=== PATIENT | male | born 1955 | race Caucasian/White ===

== ENCOUNTER 2018-01-16 10:22 | Observation (INO) | payer BC ==
[2018-01-16] MEDS ORDERED: Sodium Chloride 0.9% 10 ML Syringe FLUSH PRN (10:38)
[2018-01-16 11:21] LABS: CHLORIDE,CL 108 mmol/L (98-107); SODIUM,NA 142 mmol/L (136-145)
[2018-01-16] MEDS ORDERED: Hydrocortisone Sodium Succinate 100 MG/2 ML SDV IVPUSH ONE (12:06)
[2018-01-16] MEDS ORDERED: Indomethacin 25 MG Cap PO PRN (12:46)
[2018-01-16] MEDS: Lactated Ringers 1,000 ML IV SCH ×2 (13:05→17:05)
--- NOTE | 2018-01-16 13:12 | EDM.PDOC ---
ED HPI GENERAL MEDICAL PROBLEM - General Chief Complaint: Neurological Problem Stated Complaint: DIZZY/CONFUSION/BLURRED VISION Time Seen by Provider: 01/16/18 10:39 Source of Information: Reports: Patient History Limitations: Reports: No Limitations - History of Present Illness INITIAL COMMENTS - FREE TEXT/NARRATIVE: Pt. presents to ER with complaints of decreased level of consciousness. Pt. states that the symptoms started at approx. 9:30 this AM, shortly before going to work. Pt. states that he took a viagra at approx. 7-7:30 this AM prior to having intercourse. He states that during intercourse he did not have any headache, confusion, chest pain, or dyspnea. Pt. states that on Tuesday (01-14-18) he rode a stationary bike 26 miles during a bike marathon. He states that he didn't experience any symptoms with this. He also was extremely active yesterday and shoveled snow for 2 hours. He used his CPAP yesterday. He took his ambien last night before he went to bed. He denies any other symptoms, such as confusion, difficulty with speech or ambulation, or other neurological signs/symptoms. Pt. states that he has been taking his levothyroxine and states that it was previously greater than 20. Onset: Today Onset Date: 01/16/18 Onset Time: 09:30 Location: Reports: Generalized Associated Symptoms: Reports: Malaise. Denies: Confusion, Chest Pain, Cough, cough w sputum, Diaphoresis, Fever/Chills, Loss of Appetite, Nausea/Vomiting, Rash, Seizure, Shortness of Breath, Syncope - Related Data Allergies Allergy/AdvReac Type Severity Reaction Status Date / Time celecoxib [From Celebrex] AdvReac Mild Numbness Verified 01/16/18 11:23 Home Meds: Home Meds Amoxicillin/Clavulanate K [Augmentin 875-125 MG] 1 tab PO BID 01/16/18 [History] Aspirin [Halfprin] 81 mg PO DAILY 01/16/18 [History] Cholecalciferol (Vitamin D3) [Vitamin D3] 1,000 unit PO DAILY 01/16/18 [History] Cyanocobalamin (Vitamin B-12) [Vitamin B-12] 1,000 mcg PO DAILY 01/16/18 [ History] Diphenhyd/Lidocaine/Nystatin [First-Bxn Mouthwash] 5 - 10 ml PO Q6H PRN [History] Doxazosin [Cardura] 1 mg PO DAILY 01/16/18 [History] Fluticasone Propionate [Flonase] 1 spray NASBOTH DAILY 01/16/18 [History] Ibuprofen 800 mg PO Q4H PRN 01/16/18 [History] Indomethacin [Indocin] 50 mg PO TID PRN 01/16/18 [History] Levothyroxine Sodium [Levoxyl] 50 mcg PO DAILY 01/16/18 [History] Levothyroxine [Levothyroxine] 200 mcg PO DAILY 01/16/18 [History] Multivitamin [Multi-Vitamin Daily] 1 tab PO DAILY 01/16/18 [History] Octreotide Acetate,Mi-Spheres [Sandostatin Lar Depot] 30 mg IM Q28D 01/16/18 [ History] Sildenafil [Viagra] 100 mg PO DAILY PRN 01/16/18 [History] Testosterone Cypionate 200 mg IM Q14D 01/16/18 [History] Venlafaxine HCl [Venlafaxine ER] 150 mg PO DAILY 01/16/18 [History] Zolpidem Tartrate [Zolpidem Tartrate ER] 12.5 mg PO BEDTIME 01/16/18 [History] Past Medical History Respiratory History: Reports: Sleep Apnea Gastrointestinal History: Reports: Other (See Below) Other Gastrointestinal History: Repaired hernias Genitourinary History: Reports: BPH Musculoskeletal History: Reports: Osteoarthritis Endocrine/Metabolic History: Reports: Hyperthyroidism, Obesity/BMI 30+ Oncologic (Cancer) History: Reports: Other (See Below) Other Oncologic History: Mesentary of small intestine Dermatologic History: Reports: Decubitus Ulcer - Infectious Disease History Infectious Disease History: Reports: Chicken Pox - Past Surgical History HEENT Surgical History: Reports: Oral Surgery, Other (See Below) Other HEENT Surgeries/Procedures: Dental implants GI Surgical History: Reports: Hernia, Abdominal, Hernia Repair/Other Musculoskeletal Surgical History: Reports: Knee Replacement, Other (See Below) Other Musculoskeletal Surgeries/Procedures:: Right ankle fusion. Social & Family History - Family History Family Medical History: Noncontributory - Tobacco Use Smoking Status *Q: Never Smoker Second Hand Smoke Exposure: Yes - Caffeine Use Caffeine Use: Reports: Coffee, Soda - Recreational Drug Use Recreational Drug Use: No ED ROS GENERAL - Review of Systems Review Of Systems: See Below Constitutional: Reports: Malaise, Fatigue HEENT: Reports: No Symptoms Respiratory: Reports: No Symptoms Cardiovascular: Reports: No Symptoms Endocrine: Reports: No Symptoms GI/Abdominal: Reports: No Symptoms : Reports: No Symptoms Musculoskeletal: Reports: No Symptoms Skin: Reports: No Symptoms Neurological: Reports: No Symptoms Psychiatric: Reports: No Symptoms Hematologic/Lymphatic: Reports: No Symptoms Immunologic: Reports: No Symptoms ED EXAM, GENERAL - Physical Exam Exam: See Below Exam Limited By: No Limitations General Appearance: Alert, WD/WN, No Apparent Distress Eye Exam: Bilateral Eye: EOMI, Normal Fundi, Normal Inspection, PERRL Ears: Normal External Exam, Normal Canal, Hearing Grossly Normal, Normal TMs Ear Exam: Bilateral Ear: Auricle Normal, Canal Normal, TM normal Nose: Normal Inspection, Normal Mucosa, No Blood Throat/Mouth: Normal Inspection, Normal Lips, Normal Teeth, Normal Gums, Normal Oropharynx, Normal Voice, No Airway Compromise Head: Atraumatic, Normocephalic Neck: Normal Inspection, Supple, Non-Tender, Full Range of Motion Respiratory/Chest: No Respiratory Distress, Lungs Clear, Normal Breath Sounds, No Accessory Muscle Use, Chest Non-Tender Cardiovascular: Normal Peripheral Pulses, Regular Rate, Rhythm, No Edema, No Gallop, No JVD, No Murmur, No Rub Peripheral Pulses: 4+: Radial (L), Radial (R) GI/Abdominal: Normal Bowel Sounds, Soft, Non-Tender, No Organomegaly, No Distention, No Abnormal Bruit, No Mass (Male) Exam: Deferred Rectal (Males) Exam: Deferred Back Exam: Normal Inspection, Full Range of Motion Extremities: Normal Inspection, Normal Range of Motion, Non-Tender, Normal Capillary Refill, No Pedal Edema Neurological: Slow to Respond, Other (slow to respond/somnolent. NIH scale 1.) Psychiatric: Normal Affect, Normal Mood Skin Exam: Warm, Dry, Intact, Normal Color, No Rash Lymphatic: No Adenopathy EKG INTERPRETATION Rhythm: NSR [place]: Normal P-Wave: Present QRS: Normal ST-T: Normal QT: Normal Course - Vital Signs Last Recorded V/S: Last Vital Signs Temp 36.2 C 01/16/18 10:39 Pulse 60 01/16/18 10:39 Resp 16 03/26/18 10:39 BP 116/74 01/16/18 10:39 Pulse Ox 96 01/16/18 10:39 - Orders/Labs/Meds Orders: Active Orders 24 hr Category Date Time Status EKG Documentation Completion [RC] STAT Care 01/16/18 10:39 Active Oxygen Therapy [RC] PRN Care 01/16/18 12:05 Active Head wo Cont [CT] Stat Exams 01/16/18 10:39 Taken CULTURE BLOOD [BC] Stat Lab 01/16/18 11:00 Received CULTURE BLOOD [BC] Stat Lab 01/16/18 11:08 Received DRUG SCREEN, URINE [URCHEM] Stat Lab 01/16/18 10:57 Ordered FREE T3 [REF] Stat Lab 01/16/18 10:43 Received THYROXINE (T4) [REF] Stat Lab 01/16/18 10:43 Received Sodium Chloride 0.9% [Saline Flush] Med 01/16/18 10:38 Active 10 ml FLUSH ASDIRECTED PRN Blood Culture x2 Reflex Set [OM.PC] Stat Oth 01/16/18 10:49 Ordered Peripheral IV Insertion Adult [OM.PC] Routine Oth 01/16/18 10:39 Ordered Medication Orders Amoxicillin/Clavulanate Potassium (Augmentin 875 Mg/125 Mg) 1 tab PO BID NIA Aspirin (Halfprin) 81 mg PO DAILY NIA Cyanocobalamin (Vitamin B12) 1,000 mcg PO DAILY NIA Lactated Ringer's (Ringers, Lactated) 1,000 mls @ 250 mls/hr IV ASDIRECTED NIA Stop: 01/17/18 16:29 Levothyroxine Sodium (Synthroid) 50 mcg PO DAILY NIA Non-Formulary Medication (Cholecalciferol (Vitamin D3) [Vitamin D3]) 1,000 unit PO DAILY NIA Non-Formulary Medication (Indomethacin [Indocin]) 50 mg PO TID PRN PRN Reason: Pain (moderate 4-6) Non-Formulary Medication (Levothyroxine) 200 mcg PO DAILY NIA Non-Formulary Medication (Multivitamin [Multi-Vitamin Daily]) 1 tab PO DAILY NIA Sodium Chloride (Saline Flush) 10 ml FLUSH ASDIRECTED PRN PRN Reason: Keep Vein Open Venlafaxine HCl (Effexor Xr) 150 mg PO DAILY [facility] Labs: Laboratory Tests 01/16/18 01/16/18 01/16/18 Range/Units 10:43 10:43 10:43 WBC 8.0 (4.0-10.0) x10^3/uL RBC 4.85 (4.5-6.0) x10^6/uL Hgb 15.5 (14.0-18.0) g/dL Hct 43.7 (40.0-52.0) % MCV 90.1 (78.0-93.0) fL MCH 32.0 (26.0-32.0) pg MCHC 35.5 (32.0-36.0) g/dL RDW Coeff of Claudia 14.3 (10.0-15.0) % Plt Count 198 (130-400) x10^3/uL Neut % (Auto) 60.9 (50.0-80.0) % Lymph % (Auto) 27.6 (25.0-50.0) % [place] % (Auto) 7.7 (2.0-11.0) % Eos % (Auto) 3.4 (0.0-4.0) % Baso % (Auto) 0.4 (0.2-1.2) % PT 10.6 (9.8-11.8) SEC INR 1.0 L (2.0-3.5) POC ABG pH (7.35-7.45) POC ABG pCO2 (35-45) mmHG POC ABG pO2 (80-105) mmHG POC ABG HCO3 (22-26) mmol/L POC ABG Total CO2 (23-27) mmol/L POC ABG O2 Sat (95-98) % POC ABG Base Excess (-2-3) mmol/L POC FiO2 Sodium 142 (136-145) mmol/L Potassium 3.9 (3.5-5.1) mmol/L Chloride 108 H (98-107) mmol/L Carbon Dioxide 25 (21-32) mmol/L BUN 16 (7-18) mg/dL Creatinine 1.3 (0.70-1.30) mg/dL Est Cr Clr Drug Dosing TNP Estimated GFR (MDRD) 56 Glucose 109 H (74-106) mg/dL POC Glucose (74-106) mg/dL Lactic Acid (0.4-2.0) mmol/L Calcium 8.9 (8.5-10.1) mg/dL Corrected Calcium 8.98 (8.5-10.1) mg/dL Phosphorus 2.6 (2.6-4.7) mg/dL Magnesium 1.9 (1.8-2.4) mg/dL Total Bilirubin 1.8 H (0.2-1.0) mg/dL AST 65 H (15-37) U/L ALT 44 (16-63) U/L Alkaline Phosphatase 113 (46-116) U/L POC Troponin I (0.00-0.08) ng/mL C-Reactive Protein 0.5 (<=0.9) mg/dL Total Protein 7.4 (6.4-8.2) g/dL Albumin 3.9 (3.4-5.0) g/dL Globulin 3.5 Albumin/Globulin Ratio 1.11 TSH, Ultra Sensitive 10.085 H (0.358-3.74) uIU/mL Ethyl Alcohol < 3 (0-3) mg/dL 01/16/18 01/16/18 01/16/18 Range/Units 10:43 10:50 10:52 WBC (4.0-10.0) x10^3/uL RBC (4.5-6.0) x10^6/uL Hgb (14.0-18.0) g/dL Hct (40.0-52.0) % MCV (78.0-93.0) fL MCH (26.0-32.0) pg MCHC (32.0-36.0) g/dL RDW Coeff of [place] (10.0-15.0) % Plt Count (130-400) x10^3/uL Neut % (Auto) (50.0-80.0) % Lymph % (Auto) (25.0-50.0) % [place] % (Auto) (2.0-11.0) % Eos % (Auto) (0.0-4.0) % Baso % (Auto) (0.2-1.2) % PT (9.8-11.8) SEC INR (2.0-3.5) POC ABG pH (7.35-7.45) POC ABG pCO2 (35-45) mmHG POC ABG pO2 (80-105) mmHG POC ABG HCO3 (22-26) mmol/L POC ABG Total CO2 (23-27) mmol/L POC ABG O2 Sat (95-98) % POC ABG Base Excess (-2-3) mmol/L POC FiO2 Sodium (136-145) mmol/L Potassium (3.5-5.1) mmol/L Chloride (98-107) mmol/L Carbon Dioxide (21-32) mmol/L BUN (7-18) mg/dL Creatinine (0.70-1.30) mg/dL Est Cr Clr Drug Dosing Estimated GFR (MDRD) Glucose (74-106) mg/dL POC Glucose 100 (74-106) mg/dL Lactic Acid 1.5 (0.4-2.0) mmol/L Calcium (8.5-10.1) mg/dL Corrected Calcium (8.5-10.1) mg/dL Phosphorus (2.6-4.7) mg/dL Magnesium (1.8-2.4) mg/dL Total Bilirubin (0.2-1.0) mg/dL AST (15-37) U/L ALT (16-63) U/L Alkaline Phosphatase (46-116) U/L POC Troponin I 0.00 (0.00-0.08) ng/mL C-Reactive Protein (<=0.9) mg/dL Total Protein (6.4-8.2) g/dL Albumin (3.4-5.0) g/dL Globulin Albumin/Globulin Ratio TSH, Ultra Sensitive (0.358-3.74) uIU/mL Ethyl Alcohol (0-3) mg/dL 01/16/18 Range/Units 11:16 WBC (4.0-10.0) x10^3/uL RBC (4.5-6.0) x10^6/uL Hgb (14.0-18.0) g/dL Hct (40.0-52.0) % MCV (78.0-93.0) fL MCH (26.0-32.0) pg MCHC (32.0-36.0) g/dL RDW Coeff of Claudia (10.0-15.0) % Plt Count (130-400) x10^3/uL Neut % (Auto) (50.0-80.0) % Lymph % (Auto) (25.0-50.0) % [place] % (Auto) (2.0-11.0) % Eos % (Auto) (0.0-4.0) % Baso % (Auto) (0.2-1.2) % PT (9.8-11.8) SEC INR (2.0-3.5) POC ABG pH 7.448 (7.35-7.45) POC ABG pCO2 32 L (35-45) mmHG POC ABG pO2 64 L (80-105) mmHG POC ABG HCO3 22 (22-26) mmol/L POC ABG Total CO2 23 (23-27) mmol/L POC ABG O2 Sat 93 L (95-98) % POC ABG Base Excess -2 (-2-3) mmol/L POC FiO2 0.21 Sodium (136-145) mmol/L Potassium (3.5-5.1) mmol/L Chloride (98-107) mmol/L Carbon Dioxide (21-32) mmol/L BUN (7-18) mg/dL Creatinine (0.70-1.30) mg/dL Est Cr Clr Drug Dosing Estimated GFR (MDRD) Glucose (74-106) mg/dL POC Glucose (74-106) mg/dL Lactic Acid (0.4-2.0) mmol/L Calcium (8.5-10.1) mg/dL Corrected Calcium (8.5-10.1) mg/dL Phosphorus (2.6-4.7) mg/dL Magnesium (1.8-2.4) mg/dL Total Bilirubin (0.2-1.0) mg/dL AST (15-37) U/L ALT (16-63) U/L Alkaline Phosphatase (46-116) U/L POC Troponin I (0.00-0.08) ng/mL C-Reactive Protein (<=0.9) mg/dL Total Protein (6.4-8.2) g/dL Albumin (3.4-5.0) g/dL Globulin Albumin/Globulin Ratio TSH, Ultra Sensitive (0.358-3.74) uIU/mL Ethyl Alcohol (0-3) mg/dL Meds: Medications Generic Name Dose Route Start Last Admin Trade Name Freq PRN Reason Stop Dose Admin Amoxicillin/Clavulanate Potassium 1 tab 03/26/18 20:00 Augmentin 875 Mg/125 Mg PO BID NIA Aspirin 81 mg 01/17/18 08:00 Halfprin PO DAILY NIA Cyanocobalamin 1,000 mcg 01/17/18 08:00 Vitamin B12 PO DAILY NIA Lactated Ringer's 1,000 mls @ 250 mls/hr 01/16/18 12:30 Ringers, Lactated IV 01/17/18 16:29 ASDIRECTED NIA Levothyroxine Sodium 50 mcg 01/17/18 08:00 Synthroid PO DAILY NIA Non-Formulary Medication 1,000 unit 01/17/18 08:00 Cholecalciferol (Vitamin D3) [Vitamin D3] PO DAILY NIA Non-Formulary Medication 50 mg 01/16/18 12:46 Indomethacin [Indocin] PO TID PRN Pain (moderate 4-6) Non-Formulary Medication 200 mcg 01/17/18 08:00 Levothyroxine PO DAILY NIA Non-Formulary Medication 1 tab 01/17/18 08:00 Multivitamin [Multi-Vitamin Daily] PO DAILY NIA Sodium Chloride 10 ml 01/16/18 10:38 Saline Flush FLUSH ASDIRECTED PRN Keep Vein Open Venlafaxine HCl 150 mg 01/17/18 08:00 Effexor Xr PO DAILY NIA Discontinued Medications Generic Name Dose Route Start Last Admin Trade Name Freq PRN Reason Stop Dose Admin Hydrocortisone Sodium Succinate 100 mg 01/16/18 12:06 Solu-Cortef IVPUSH 01/16/18 12:07 ONETIME ONE - Radiology Interpretation Free Text/Narrative:: brain without contast. No acute pathology. Departure - Departure Time of Disposition: 12:30 Disposition: Refer to Observation Clinical Impression: Medication intolerance, Dehydration - Discharge Information - My Orders Last 24 Hours: My Active Orders 01/16/18 10:38 Sodium Chloride 0.9% [Saline Flush] 10 ml FLUSH ASDIRECTED PRN 01/16/18 10:39 EKG Documentation Completion [RC] STAT Head wo Cont [CT] Stat Peripheral IV Insertion Adult [OM.PC] Routine 01/16/18 10:43 FREE T3 [REF] Stat THYROXINE (T4) [REF] Stat 01/16/18 10:49 Blood Culture x2 Reflex Set [OM.PC] Stat 01/16/18 10:57 DRUG SCREEN, URINE [URCHEM] Stat 01/16/18 11:00 CULTURE BLOOD [BC] Stat 01/16/18 11:08 CULTURE BLOOD [BC] Stat 01/16/18 12:05 Oxygen Therapy [RC] PRN - Assessment/Plan Last 24 Hours: My Active Orders 01/16/18 10:38 Sodium Chloride 0.9% [Saline Flush] 10 ml FLUSH ASDIRECTED PRN 01/16/18 10:39 EKG Documentation Completion [RC] STAT Head wo Cont [CT] Stat Peripheral IV Insertion Adult [OM.PC] Routine 01/16/18 10:43 FREE T3 [REF] Stat THYROXINE (T4) [REF] Stat 01/16/18 10:49 Blood Culture x2 Reflex Set [OM.PC] Stat 01/16/18 10:57 DRUG SCREEN, URINE [URCHEM] Stat 01/16/18 11:00 CULTURE BLOOD [BC] Stat 01/16/18 11:08 CULTURE BLOOD [BC] Stat 01/16/18 12:05 Oxygen Therapy [RC] PRN
[2018-01-16] MEDS ORDERED: Amoxicillin/Clavulanate K 875-125 MG Tab PO SCH (20:00)
[2018-01-17] MEDS ORDERED: Venlafaxine 150 MG Cap.ER PO SCH (08:00)
[2018-01-17] MEDS ORDERED: Multivitamins with Iron/Calcium/Folic Acid/Minerals Tab PO SCH (08:00)
[2018-01-17] MEDS ORDERED: Aspirin 81 MG Tab.EC PO SCH (08:00)
[2018-01-17] MEDS ORDERED: Cholecalciferol (Vitamin D3) 1,000 Unit Tab PO SCH (08:00)
[2018-01-17] MEDS ORDERED: Cyanocobalamin (Vitamin B12) 1,000 MCG Tab PO SCH (08:00)
[2018-01-17] MEDS ORDERED: Levothyroxine 100 MCG Tab PO SCH (08:00)
[2018-01-17] MEDS ORDERED: Levothyroxine 50 MCG Tab PO SCH (08:00)
--- NOTE | 2018-01-17 19:12 | PCM.DCSUM1 ---
Discharge Summary - Hospital Course Free Text/Narrative:: Pt. had been experiencing extreme fatigue and was admitted for observation. Pt. had done a 26 mile stationary bike ride and had shoveled snow shortly thereafter. Pt. took viagra and shortly thereafter became extremely fatigued. EKG and lab studies were all within normal limits. Pt. slept throughout the day and was alert and feel much improved at time of discharge. - Discharge Data Discharge Date: 01/16/18 Discharge Disposition: Home, Self-Care 01 Condition: Good - Discharge Diagnosis/Problem(s) (1) Dehydration SNOMED Code(s): 22239360 ICD Code: E86.0 - DEHYDRATION Status: Acute (2) Medication intolerance SNOMED Code(s): 35141524 ICD Code: Z78.9 - OTHER SPECIFIED HEALTH STATUS Status: Acute - Patient Instructions Diet: Regular Diet as Tolerated Activity: No Strenuous Activities Showering/Bathing: May Shower Wound/Incision Care: Keep Operative Site/Wound Site Clean and Dry - Discharge Plan Home Medications: Home Meds Amoxicillin/Clavulanate K [Augmentin 875-125 MG] 1 tab PO BID 01/16/18 [History] Aspirin [Halfprin] 81 mg PO DAILY 01/16/18 [History] Cholecalciferol (Vitamin D3) [Vitamin D3] 1,000 unit PO DAILY 01/16/18 [History] Cyanocobalamin (Vitamin B-12) [Vitamin B-12] 1,000 mcg PO DAILY 01/16/18 [ History] Diphenhyd/Lidocaine/Nystatin [Magic Mouthwash] 5 - 10 ml PO Q6H PRN 01/16/18 [ History] Doxazosin [Cardura] 1 mg PO DAILY 01/16/18 [History] Fluticasone Propionate [Flonase] 1 spray NASBOTH DAILY 01/16/18 [History] Ibuprofen 800 mg PO Q4H PRN 01/16/18 [History] Indomethacin [Indocin] 50 mg PO TID PRN 01/16/18 [History] Levothyroxine 200 mcg PO DAILY 01/16/18 [History] Levothyroxine Sodium [Levoxyl] 50 mcg PO DAILY 01/16/18 [History] Multivitamin [Multi-Vitamin Daily] 1 tab PO DAILY 01/16/18 [History] Octreotide Acetate,Mi-Spheres [Sandostatin Lar Depot] 30 mg IM Q28D 01/16/18 [ History] Sildenafil [Viagra] 100 mg PO DAILY PRN 01/16/18 [History] Testosterone Cypionate 200 mg IM Q14D 01/16/18 [History] Venlafaxine HCl [Venlafaxine ER] 150 mg PO DAILY 01/16/18 [History] Zolpidem Tartrate [Zolpidem Tartrate ER] 12.5 mg PO BEDTIME 01/16/18 [History] Patient Handouts: Dehydration, Adult, [id number] Forms: ED Department Discharge Referrals: Di Jung DO [Primary Care Provider] - - General Info Date of Service: 01/16/18 Functional Status: Reports: Pain Controlled - Review of Systems General: Reports: No Symptoms HEENT: Reports: No Symptoms Pulmonary: Reports: No Symptoms Cardiovascular: Reports: No Symptoms Gastrointestinal: Reports: No Symptoms Genitourinary: Reports: No Symptoms Musculoskeletal: Reports: No Symptoms Skin: Reports: No Symptoms Neurological: Reports: No Symptoms Psychiatric: Reports: No Symptoms - Patient Data Vitals - Most Recent: Last Vital Signs Temp 36.6 C 01/16/18 18:00 Pulse 63 01/16/18 18:00 Resp 16 01/16/18 18:00 BP 114/62 01/16/18 18:00 Pulse Ox 95 01/16/18 19:22 Weight - Most Recent: 133.81 kg Lab Results - Last 24 hrs: Laboratory Results - last 24 hr 01/16/18 Range/Units 10:43 Free T3 pg/mL 3.43 (2.50-3.90) pg/mL PETEY Results - Last 24 hrs: Microbiology 01/16/18 11:08 Aerobic Blood Culture - Preliminary Blood - Venous - Lab Draw NO GROWTH AFTER 1 DAY Anaerobic Blood Culture - Preliminary NO GROWTH AFTER 1 DAY 01/16/18 11:00 Aerobic Blood Culture - Preliminary Blood - Venous NO GROWTH AFTER 1 DAY Anaerobic Blood Culture - Preliminary NO GROWTH AFTER 1 DAY Med Orders - Current: Current Medications Discontinued Medications Amoxicillin/Clavulanate Potassium (Augmentin 875 Mg/125 Mg) 1 tab PO BID NIA Last Admin: 01/16/18 19:45 Dose: 1 tab Aspirin (Halfprin) 81 mg PO DAILY [facility] Cholecalciferol (Vitamin D3) 1,000 units PO DAILY [facility] Cyanocobalamin (Vitamin B12) 1,000 mcg PO DAILY [facility] Hydrocortisone Sodium Succinate (Solu-Cortef) 100 mg IVPUSH ONETIME ONE Stop: 01/16/18 12:07 Last Admin: 01/16/18 13:07 Dose: Not Given Lactated Ringer's (Ringers, Lactated) 1,000 mls @ 250 mls/hr IV ASDIRECTED NIA Stop: 01/17/18 16:29 Last Admin: 01/16/18 17:05 Dose: 250 mls/hr Indomethacin (Indocin) 50 mg PO TID PRN PRN Reason: Pain (moderate 4-6) Levothyroxine Sodium (Synthroid) 200 mcg PO DAILY NIA Levothyroxine Sodium (Synthroid) 50 mcg PO DAILY [facility] Multivitamins/Minerals (Thera M Plus) 1 tab PO DAILY [facility] Sodium Chloride (Saline Flush) 10 ml FLUSH ASDIRECTED PRN PRN Reason: Keep Vein Open Last Admin: 01/16/18 13:05 Dose: 10 ml Venlafaxine HCl (Effexor Xr) 150 mg PO DAILY NIA - Exam General: Reports: Alert, Oriented HEENT: Reports: Pupils Equal, Pupils Reactive, EOMI, Mucous Membr. Moist/[place] Neck: Reports: Supple Lungs: Reports: Clear to Auscultation, Normal Respiratory Effort Cardiovascular: Reports: Regular Rate, Regular Rhythm GI/Abdominal Exam: Normal Bowel Sounds, Soft, Non-Tender, No Organomegaly, No Distention, No Abnormal Bruit, No Mass, Pelvis Stable (Male) Exam: No Hernia, Normal Inspection, Normal Prostate, Circumcised Rectal (Males) Exam: Normal Exam, Normal Rectal Tone, Prostate Normal Back Exam: Reports: Normal Inspection, Full Range of Motion Extremities: Normal Inspection, Normal Range of Motion, Non-Tender, No Pedal Edema, Normal Capillary Refill Skin: Reports: Warm, Dry, Intact Wound/Incisions: Reports: Healing Well Neurological: Reports: No New Focal Deficit Psy/Mental Status: Reports: Alert, Normal Affect, Normal Mood EKG INTERPRETATION Rhythm: NSR [place]: Normal P-Wave: Present QRS: Normal ST-T: Normal QT: Normal
== END 2018-01-16 21:10 | disposition home or self-care (01) ==
LOC: VM.ED 10:22 → VM.MS 12:17 → UNDODISOB 12:30
PROVIDERS: ADMIT Physician Assistant; ATTEND Physician Assistant
DX: E86.0 Dehydration (principal); N40.0 Benign prostatic hyperplasia without lower urinary tract symptoms; E05.90 Thyrotoxicosis, unspecified without thyrotoxic crisis or storm; E66.9 Obesity, unspecified; G47.30 Sleep apnea, unspecified; Z78.9 Other specified health status; Z79.2 Long term (current) use of antibiotics; Z79.82 Long term (current) use of aspirin; Z79.899 Other long term (current) drug therapy; Z88.8 Allergy status to other drugs, medicaments and biological substances; Z68.30 Body mass index [BMI] 30.0-30.9, adult
CPT/HCPCS: 36415; 70450; 80053; 80305; 82803; 82962; 83605; 83735; 84100; 84436; 84443; 84481; 84484; 85025; 85610; 86140; 87040; 93005; 94760; 96360; 99285; A9270; G0480; J7050; J7120; 36600; 96361; G0378

== ENCOUNTER 2021-07-21 17:31 | Emergency (ER) | payer BC ==
[2021-07-21] MEDS ORDERED: Sodium Chloride 0.9% 10 ML Syringe FLUSH PRN (17:43)
--- NOTE | 2021-07-21 17:51 | EDM.PDOC ---
ED HPI GENERAL MEDICAL PROBLEM - General Chief Complaint: General Stated Complaint: fever, fatigue post surgical Time Seen by Provider: 07/21/21 17:45 Source of Information: Reports: Patient History Limitations: Reports: No Limitations - History of Present Illness INITIAL COMMENTS - FREE TEXT/NARRATIVE: Patient comes into the emergency room with complaint fever, body aches, chills, postsurgical concerns. Patient began running a fever late this afternoon. Patient did just have a pacemaker placed yesterday and was discharged in the hospital this morning. Patient has had a fever up to 102 today. Patient continues to feel more fatigued and tired. It is also noted that the patient is red hot over the area of insertion. Patient has not had any nausea or vomiting. Patient also denies any chest pain, abdominal pain, shortness of breath, dizziness, lightheadedness, or peripheral edema. Patient has been relatively healthy. It is noted that after the last surgical intervention The patient underwent he became septic in a shorter period of time after his surgical intervention as well according to the .The patient's did contact call the nurse and they did suggest that the patient be evaluated in the nearest emergency department for evaluation of an active infection.Patient also has a longstanding history of back problems and back pain. He states that he was on the surgical table for approximately 5 hours yesterday and has had significant amount of back pain and discomfort since then. He denies any genitourinary concerns for frequency, burning, hesitancy or flank discomfort. He states that it is in the same specific area of the back that he normally has discomfort and pain. Onset: Gradual Quality: Reports: Ache, Throbbing Severity: Moderate Improves with: Reports: None Worsens with: Reports: None Context: Reports: Other Associated Symptoms: Reports: Fever/Chills, Headaches, Loss of Appetite, Malaise. Denies: Chest Pain, Cough, cough w sputum, Diaphoresis, Nausea/ Vomiting, Rash, Seizure, Shortness of Breath Treatments [employer] WORKER: Reports: Acetaminophen - Related Data Allergies Allergy/AdvReac Type Severity Reaction Status Date / Time celecoxib [From Celebrex] AdvReac Mild Numbness Verified 01/16/18 11:23 Home Meds: Home Meds Amoxicillin/Clavulanate K [Augmentin 875-125 MG] 1 tab PO BID 01/16/18 [History] Aspirin [Halfprin] 81 mg PO DAILY 01/16/18 [History] Cholecalciferol (Vitamin D3) [Vitamin D3] 1,000 unit PO DAILY 01/16/18 [History] Cyanocobalamin (Vitamin B-12) [Vitamin B-12] 1,000 mcg PO DAILY 01/16/18 [History] Diphenhyd/Lidocaine/Nystatin [Magic Mouthwash] 5 - 10 ml PO Q6H PRN 01/16/18 [History] Doxazosin [Cardura] 1 mg PO DAILY 01/16/18 [History] Fluticasone Propionate [Flonase] 1 spray NASBOTH DAILY 01/16/18 [History] Ibuprofen 800 mg PO Q4H PRN 01/16/18 [History] Indomethacin [Indocin] 50 mg PO TID PRN 01/16/18 [History] Levothyroxine 200 mcg PO DAILY 01/16/18 [History] Levothyroxine Sodium [Levoxyl] 50 mcg PO DAILY 01/16/18 [History] Multivitamin [Multi-Vitamin Daily] 1 tab PO DAILY 01/16/18 [History] Octreotide Acetate,Mi-Spheres [Sandostatin [place]] 30 mg IM Q28D 01/16/18 [History] Sildenafil [Viagra] 100 mg PO DAILY PRN 01/16/18 [History] Testosterone Cypionate 200 mg IM Q14D 01/16/18 [History] Venlafaxine HCl [Venlafaxine ER] 150 mg PO DAILY 01/16/18 [History] Zolpidem Tartrate [Zolpidem Tartrate ER] 12.5 mg PO BEDTIME 01/16/18 [History] Past Medical History Respiratory History: Reports: Sleep Apnea Gastrointestinal History: Reports: Other (See Below) Other Gastrointestinal History: Repaired hernias Genitourinary History: Reports: BPH Musculoskeletal History: Reports: Osteoarthritis Endocrine/Metabolic History: Reports: Hyperthyroidism, Obesity/BMI 30+ Oncologic (Cancer) History: Reports: Other (See Below) Other Oncologic History: Mesentary of small intestine Dermatologic History: Reports: Decubitus Ulcer - Infectious Disease History Infectious Disease History: Reports: Chicken Pox - Past Surgical History HEENT Surgical History: Reports: Oral Surgery, Other (See Below) Other HEENT Surgeries/Procedures: Dental implants GI Surgical History: Reports: Hernia, Abdominal, Hernia Repair/Other Musculoskeletal Surgical History: Reports: Knee Replacement, Other (See Below) Other Musculoskeletal Surgeries/Procedures:: Right ankle fusion. Social & Family History - Family History Family Medical History: No Pertinent Family History - Caffeine Use Caffeine Use: Reports: Coffee, Soda ED ROS GENERAL - Review of Systems Review Of Systems: Comprehensive ROS is negative, except as noted in HPI. Constitutional: Reports: Fever, Chills, Malaise, Fatigue, Decreased Appetite HEENT: Reports: No Symptoms Respiratory: Reports: No Symptoms Cardiovascular: Reports: Other (pacemaker insertion left upper chest 1 day ago ) Endocrine: Reports: No Symptoms GI/Abdominal: Reports: No Symptoms : Reports: No Symptoms Musculoskeletal: Reports: No Symptoms Skin: Reports: Other (surgical groin site with bandage) Neurological: Reports: No Symptoms Psychiatric: Reports: No Symptoms Hematologic/Lymphatic: Reports: No Symptoms Immunologic: Reports: No Symptoms ED EXAM, GENERAL - Physical Exam Exam: See Below Exam Limited By: No Limitations General Appearance: Alert, WD/WN, No Apparent Distress Eye Exam: Bilateral Eye: PERRL Head: Atraumatic, Normocephalic Neck: Normal Inspection, Supple, Non-Tender, Full Range of Motion Respiratory/Chest: No Respiratory Distress, Lungs Clear, Normal Breath Sounds, No Accessory Muscle Use, Chest Non-Tender Cardiovascular: Normal Peripheral Pulses, No Edema, No JVD, No Murmur, No Rub, Tachycardia Peripheral Pulses: 4+: Radial (L), Radial (R), Dorsalis Pedis (L), Dorsalis Pedis (R) GI/Abdominal: Normal Bowel Sounds, Soft, Non-Tender, No Abnormal Bruit, No Mass Back Exam: Decreased Range of Motion (due to acute on chronic back pain ) Extremities: Normal Inspection, Normal Range of Motion, Non-Tender, No Pedal Edema, Normal Capillary Refill Neurological: Alert, Oriented, CN II-XII Intact, Normal Cognition, Normal Gait Psychiatric: Normal Affect, Normal Mood Skin Exam: Increased Warmth (chest, redness, mild swelling noted over surgical site upper left chest) Course - Vital Signs Last Recorded V/S: Last Vital Signs Temp 38.8 C H 07/21/21 20:11 Pulse 99 07/21/21 20:11 Resp 17 07/21/21 20:11 BP 124/80 07/21/21 20:11 Pulse Ox 93 L 07/21/21 20:11 - Orders/Labs/Meds Labs: Laboratory Tests 07/21/21 07/21/21 07/21/21 Range/Units 17:35 17:52 17:52 WBC 11.1 H (4.0-10.0) x10^3/uL RBC 4.74 (4.5-6.0) x10^6/uL Hgb 14.4 (14.0-18.0) g/dL Hct 41.3 (40.0-52.0) % MCV 87.1 (78.0-93.0) fL MCH 30.4 (26.0-32.0) pg MCHC 34.9 (32.0-36.0) g/dL RDW Coeff of Claudia 13.3 (10.0-15.0) % Plt Count 188 (130-400) x10^3/uL Immature Gran % (Auto) 0.20 (0.00-0.43) % Neut % (Auto) 76.7 (50.0-80.0) % Lymph % (Auto) 12.4 L (25.0-50.0) % [place] % (Auto) 10.5 (2.0-11.0) % Eos % (Auto) 0.1 (0.0-4.0) % Baso % (Auto) 0.1 L (0.2-1.2) % Neut # (Auto) 8.5 H (1.8-7.7) x10^3/uL Lymph # (Auto) 1.4 (1.0-4.8) x10^3/uL [place] # (Auto) 1.2 H (0.0-0.8) x10^3/uL Eos # (Auto) 0.0 (0.0-0.5) x10^3/uL Baso # (Auto) 0.0 (0.0-0.2) x10^3/uL Immature Gran # (Auto) 0.02 (0.00-0.07) x10^3/uL Sodium 136 (136-145) mmol/L Potassium 3.9 (3.5-5.1) mmol/L Chloride 101 (98-107) mmol/L Carbon Dioxide 24 (21-32) mmol/L Anion Gap 14.9 (5-15) mmol/L BUN 14 (7-18) mg/dL Creatinine 0.9 (0.70-1.30) mg/dL Est Cr Clr Drug Dosing TNP Estimated GFR (MDRD) > 60 Glucose 146 H (70-99) mg/dL Lactic Acid (0.4-2.0) mmol/L Calcium 8.9 (8.5-10.1) mg/dL Corrected Calcium 9.1 (8.5-10.1) mg/dL Total Bilirubin 4.6 H (0.2-1.0) mg/dL AST 89 H (15-37) U/L ALT 43 (16-63) U/L Alkaline Phosphatase 109 (46-116) U/L Total Protein 7.7 (6.4-8.2) g/dL Albumin 3.8 (3.4-5.0) g/dL Globulin 3.9 Albumin/Globulin Ratio 0.97 Urine Color (YELLOW) Urine Appearance (CLEAR) Urine pH (5.0-8.0) Ur Specific [place] Urine Protein (NEGATIVE) mg/dL Urine Glucose (UA) (NEGATIVE) mg/dL Urine Ketones (NEGATIVE) mg/dL Urine Occult Blood (NEGATIVE) Urine Nitrite (NEGATIVE) Urine Bilirubin (NEGATIVE) Urine Urobilinogen (0.2) EU/dL Ur Leukocyte Esterase (NEGATIVE) Urine RBC (NOT SEEN) /HPF Urine WBC (NOT SEEN) /HPF Ur Squamous Epith Cells (NOT SEEN) /HPF Urine Bacteria (NOT SEEN) /HPF Urine Mucus (NOT SEEN) /LPF SARS CoV-2 RNA Rapid SARA Negative (NEGATIVE) 07/21/21 07/21/21 Range/Units 17:52 18:30 WBC (4.0-10.0) x10^3/uL RBC (4.5-6.0) x10^6/uL Hgb (14.0-18.0) g/dL Hct (40.0-52.0) % MCV (78.0-93.0) fL MCH (26.0-32.0) pg MCHC (32.0-36.0) g/dL RDW Coeff of Claudia (10.0-15.0) % Plt Count (130-400) x10^3/uL Immature Gran % (Auto) (0.00-0.43) % Neut % (Auto) (50.0-80.0) % Lymph % (Auto) (25.0-50.0) % [place] % (Auto) (2.0-11.0) % Eos % (Auto) (0.0-4.0) % Baso % (Auto) (0.2-1.2) % Neut # (Auto) (1.8-7.7) x10^3/uL Lymph # (Auto) (1.0-4.8) x10^3/uL [place] # (Auto) (0.0-0.8) x10^3/uL Eos # (Auto) (0.0-0.5) x10^3/uL Baso # (Auto) (0.0-0.2) x10^3/uL Immature Gran # (Auto) (0.00-0.07) x10^3/uL Sodium (136-145) mmol/L Potassium (3.5-5.1) mmol/L Chloride (98-107) mmol/L Carbon Dioxide (21-32) mmol/L Anion Gap (5-15) mmol/L BUN (7-18) mg/dL Creatinine (0.70-1.30) mg/dL Est Cr Clr Drug Dosing Estimated GFR (MDRD) Glucose (70-99) mg/dL Lactic Acid 1.3 (0.4-2.0) mmol/L Calcium (8.5-10.1) mg/dL Corrected Calcium (8.5-10.1) mg/dL Total Bilirubin (0.2-1.0) mg/dL AST (15-37) U/L ALT (16-63) U/L Alkaline Phosphatase (46-116) U/L Total Protein (6.4-8.2) g/dL Albumin (3.4-5.0) g/dL Globulin Albumin/Globulin Ratio Urine Color Dark yellow H (YELLOW) Urine Appearance Clear (CLEAR) Urine pH 5.5 (5.0-8.0) Ur Specific [place] 1.020 Urine Protein Negative (NEGATIVE) mg/dL Urine Glucose (UA) Negative (NEGATIVE) mg/dL Urine Ketones Negative (NEGATIVE) mg/dL Urine Occult Blood Trace-lysed H (NEGATIVE) Urine Nitrite Negative (NEGATIVE) Urine Bilirubin Negative (NEGATIVE) Urine Urobilinogen 0.2 (0.2) EU/dL Ur Leukocyte Esterase Negative (NEGATIVE) Urine RBC 0-5 (NOT SEEN) /HPF Urine WBC Not seen (NOT SEEN) /HPF Ur Squamous Epith Cells Rare (NOT SEEN) /HPF Urine Bacteria Not seen (NOT SEEN) /HPF Urine Mucus Not seen (NOT SEEN) /LPF SARS CoV-2 RNA Rapid SARA (NEGATIVE) Meds: Medications Discontinued Medications Generic Name Dose Route Start Last Admin Trade Name Freq PRN Reason Stop Dose Admin Ceftriaxone Sodium 1 gm 07/21/21 17:49 07/21/21 17:57 Ceftriaxone 1 Gm Vial IVPUSH 07/21/21 17:50 1 gm ONETIME ONE Administration Fentanyl 50 mcg 07/21/21 17:46 07/21/21 18:02 Fentanyl 50 Mcg/Ml Sdv IVPUSH 07/21/21 17:47 50 mcg ONETIME ONE Administration Ketorolac Tromethamine 15 mg 07/21/21 17:46 07/21/21 18:00 Ketorolac 15 Mg/Ml Sdv IVPUSH 07/21/21 17:47 15 mg ONETIME ONE Administration Sodium Chloride 10 ml 07/21/21 17:43 Sodium Chloride 0.9% 10 Ml Syringe FLUSH ASDIRECTED PRN Keep Vein Open Departure - Departure Time of Disposition: 22:00 Disposition: Home, Self-Care 01 Clinical Impression: Post surgical complication Qualifiers: Surgical complication system/body Area: skin Surgical complication type: unspecified Procedure type: non-dermatologic Qualified Code(s): L76.82 - Other postprocedural complications of skin and subcutaneous tissue - Discharge Information Instructions: Pacemaker Implantation, Adult, Care After Referrals: Di Jung, DO [Primary Care Provider] - Forms: ED Department Discharge Additional Instructions: 1. rest 2. increase your water intake 3. Continue all at home medications 4. Activity and diet as tolerated 5. Can take over the counter Tylenol for any pain or discomfort 6. Follow up with PCP if symptoms continue, return, or progress 7. Call with any questions or concerns - Assessment/Plan Assessment:: 1. fever 2. sepsis 3. Surgical intervention within 24 hours Plan: 1. Sepsis protocol initiated and followed 2. Labs completed in the ER. Results reviewed with the patient 3. Blood cultures completed 4. IV initiated in the emergency department 5. IV fluids provided 6. EKG completed in ER. 7. Rocephin 1gm given 8. Patient and nursing staff was updated regarding the plan of care 9. Patient and family are agreeable to the above plan of care 10. All questions and concerns were addressed with the patient and family prior to discharge
[2021-07-21] MEDS: cefTRIAXone 1 GM Vial IVPUSH ONE (17:57)
[2021-07-21] MEDS: Ketorolac 15 MG/ML SDV IVPUSH ONE (18:00)
[2021-07-21] MEDS: fentaNYL 50 MCG/ML SDV IVPUSH ONE (18:02)
[2021-07-21 18:24] LABS: CHLORIDE,CL 101 mmol/L (98-107); SODIUM,NA 136 mmol/L (136-145)
[2021-07-21 18:32] LABS: ANION GAP 14.9 mmol/L (5-15)
== END 2021-07-21 20:30 | disposition home or self-care (01) ==
LOC: VM.ED 17:31
DX: A41.9 Sepsis, unspecified organism (principal); E03.9 Hypothyroidism, unspecified; E66.9 Obesity, unspecified; Z68.35 Body mass index [BMI] 35.0-35.9, adult; Z88.8 Allergy status to other drugs, medicaments and biological substances; Z79.899 Other long term (current) drug therapy; Z79.82 Long term (current) use of aspirin
CPT/HCPCS: 36415; 80053; 81001; 83605; 85025; 87040; 87635; 96374; 96375; 99283; 99284; J0696; J1885; J3010; U0002

== ENCOUNTER 2021-11-04 13:17 | Observation (INO) | payer MEDICARE, OTHER ==
[2021-11-04 14:36] LABS: CORONAVIRUS COVID-19 NAA NEGATIVE (NEGATIVE)
[2021-11-04] MEDS ORDERED: Rivaroxaban 10 MG Tab PO SCH (18:00)
[2021-11-04] MEDS: oxyCODONE 5 MG Tab PO PRN (18:18)
[2021-11-04] MEDS: Acetaminophen 325 MG Tab PO PRN (18:20)
[2021-11-04] MEDS ORDERED: Zolpidem 5 MG Tab PO SCH (20:00)
[2021-11-05] MEDS: oxyCODONE 5 MG Tab PO PRN ×2 (02:48→06:50)
[2021-11-05] MEDS ORDERED: Levothyroxine 150 MCG Tab PO SCH (07:00)
[2021-11-05 07:03] LABS: CHLORIDE,CL 92 mmol/L (98-107)
[2021-11-05 07:18] LABS: SODIUM,NA 128 mmol/L (136-145)
[2021-11-05] MEDS: Acetaminophen 325 MG Tab PO PRN (07:53)
[2021-11-05] MEDS ORDERED: Venlafaxine 75 MG Cap.ER PO SCH (08:00)
[2021-11-05] MEDS ORDERED: Lisinopril 10 MG Tab PO SCH (08:00)
[2021-11-05] MEDS ORDERED: LORazepam 0.5 MG Tab PO PRN (12:58)
[2021-11-05] MEDS ORDERED: Dexamethasone 4 MG Tab PO SCH (20:00)
== END 2021-11-05 17:45 | disposition home or self-care (01) ==
LOC: VM.MS 13:47 → UNDOADMOB 13:47 → VM.MS 15:07
PROVIDERS: ADMIT Internal Medicine; ATTEND Internal Medicine
DX: R22.1 Localized swelling, mass and lump, neck (principal); R59.0 Localized enlarged lymph nodes; M54.2 Cervicalgia; C7A.00 Malignant carcinoid tumor of unspecified site; I10 Essential (primary) hypertension; I48.92 Unspecified atrial flutter; G47.33 Obstructive sleep apnea (adult) (pediatric); E03.9 Hypothyroidism, unspecified; E66.9 Obesity, unspecified; F41.9 Anxiety disorder, unspecified; F32.A Depression, unspecified; G62.9 Polyneuropathy, unspecified; I48.91 Unspecified atrial fibrillation; G47.00 Insomnia, unspecified; R73.9 Hyperglycemia, unspecified; Z88.8 Allergy status to other drugs, medicaments and biological substances; Z79.01 Long term (current) use of anticoagulants; Z79.899 Other long term (current) drug therapy; Z79.890 Hormone replacement therapy; Z98.890 Other specified postprocedural states; Z95.0 Presence of cardiac pacemaker; Z20.822 Contact with and (suspected) exposure to COVID-19
CPT/HCPCS: 0240U; 36415; 70491; 80048; 82947; 84443; 85025; 85652; 87040; A9270-GY; G0378

== ENCOUNTER 2023-12-04 17:31 | Emergency (ER) | payer MEDICARE, OTHER ==
[2023-12-04] MEDS ORDERED: Lactated Ringers 1,000 ML IV ONE (20:36)
== END 2023-12-04 18:40 | disposition home or self-care (01) ==
LOC: VM.ED 17:31
DX: R31.9 Hematuria, unspecified (principal); I10 Essential (primary) hypertension; E03.9 Hypothyroidism, unspecified; E66.9 Obesity, unspecified; Z79.899 Other long term (current) drug therapy; Z88.8 Allergy status to other drugs, medicaments and biological substances
CPT/HCPCS: 99283

== ENCOUNTER 2024-02-21 09:48 | Emergency (ER) | payer MEDICARE, OTHER | END 2024-02-21 10:30 | disposition home or self-care (01) | LOC: VM.ED 09:48 | DX: S81.832A Puncture wound without foreign body, left lower leg, initial encounter (principal); I10 Essential (primary) hypertension; I48.92 Unspecified atrial flutter; E03.9 Hypothyroidism, unspecified; E66.9 Obesity, unspecified; Z79.01 Long term (current) use of anticoagulants; Z79.899 Other long term (current) drug therapy; Z88.1 Allergy status to other antibiotic agents; Z68.35 Body mass index [BMI] 35.0-35.9, adult; W26.8XXA Contact with other sharp object(s), not elsewhere classified, initial encounter | CPT/HCPCS: 12001; 99283 ==

== ENCOUNTER 2025-06-02 13:46 | Emergency (ER) | payer MEDICARE, OTHER ==
[2025-06-02] MEDS ORDERED: Sodium Chloride 0.9% 10 ML Syringe FLUSH PRN (14:13)
[2025-06-02 14:20] LABS: BASOPHILS ABSOLUTE AUTO 0.0 x10^3/uL (0.0-0.2); BASOPHILS PERCENT AUTO 0.1 % (0.2-1.2); EOSINOPHILS ABSOLUTE AUTO 0.0 x10^3/uL (0.0-0.5); EOSINOPHILS PERCENT AUTO 0.3 % (0.0-4.0); IMMATURE GRAN ABSOLUTE AUTO 0.02 x10^3/uL (0.00-0.07); IMMATURE GRAN PERCENT AUTO 0.30 % (0.00-0.43); LYMPHOCYTES ABSOLUTE AUTO 0.6 x10^3/uL (1.0-4.8); LYMPHOCYTES PERCENT AUTO 7.1 % (25.0-50.0); MONOCYTES ABSOLUTE AUTO 0.4 x10^3/uL (0.0-0.8); MONOCYTES PERCENT AUTO 5.3 % (2.0-11.0); NEUTROPHILS ABSOLUTE AUTO 6.7 x10^3/uL (1.8-7.7); NEUTROPHILS PERCENT AUTO 86.9 % (50.0-80.0); PLATELET COUNT,PLT 194 x10^3/uL (130-400); RED BLOOD CELL COUNT 4.24 x10^6/uL (4.5-6.0); WHITE BLOOD CELL COUNT,WBC 7.7 x10^3/uL (4.0-10.0)
[2025-06-02 14:33] LABS: A/G RATIO 1.18; ALANINE AMINOTRANSFERASE,ALT 417 U/L (16-63); ASPARTATE AMNIOTRANSFERASE,AST 587 U/L (15-37); BILIRUBIN TOTAL 3.4 mg/dL (0.2-1.0); BLOOD UREA NITROGEN,BUN 11 mg/dL (7-18); CARBON DIOXIDE,CO2 25 mmol/L (21-32); CHLORIDE,CL 101 mmol/L (98-107); CREATININE 0.8 mg/dL (0.70-1.30); GLUCOSE RANDOM 109 mg/dL (70-99); POTASSIUM,K 3.5 mmol/L (3.5-5.1); PROTEIN TOTAL,TP 7.4 g/dL (6.4-8.2); SODIUM,NA 141 mmol/L (136-145)
[2025-06-02 14:34] LABS: ESTIMATED GFR 96 mL/min (>=60)
[2025-06-02 14:42] LABS: APPEARANCE,URINE CLEAR (CLEAR); GLUCOSE,URINE NEGATIVE (NEGATIVE); OCCULT BLOOD,URINE NEGATIVE (NEGATIVE)
[2025-06-02 14:43] LABS: SQUAMOUS EPITHELIAL CELLS,UR NOT SEEN /HPF (NOT SEEN)
[2025-06-02 15:14] LABS: CORONAVIRUS COVID-19 NAA NEGATIVE (NEGATIVE); INFLUENZA A NAA NEGATIVE (NEGATIVE); INFLUENZA B NAA NEGATIVE (NEGATIVE)
[2025-06-02] MEDS: metroNIDAZOLE/Normal Saline 500 MG in Premix Bag 1 BAG IV ONE (16:52)
[2025-06-02] MEDS: Ondansetron 4 MG/2 ML SDV IVPUSH ONE (16:53)
[2025-06-02] MEDS: Iopamidol 612 MG/ML 100 ML Bottle IVPUSH ONE (16:57)
[2025-06-02] MEDS ORDERED: fentaNYL 100 MCG/2 ML SDV IVPUSH ONE (16:58)
[2025-06-02] MEDS: fentaNYL 100 MCG/2 ML SDV IVPUSH ONE (17:01)
== END 2025-06-02 17:30 | disposition short-term general hospital (02) ==
LOC: VM.ED 13:46
DX: A41.9 Sepsis, unspecified organism (principal); K82.9 Disease of gallbladder, unspecified; R50.9 Fever, unspecified; R74.01 Elevation of levels of liver transaminase levels; E80.7 Disorder of bilirubin metabolism, unspecified; I10 Essential (primary) hypertension; E66.9 Obesity, unspecified; E03.9 Hypothyroidism, unspecified; Z88.8 Allergy status to other drugs, medicaments and biological substances; Z79.890 Hormone replacement therapy; Z79.899 Other long term (current) drug therapy
CPT/HCPCS: 36415; 71045; 74177; 80053; 81001; 82150; 83605; 83690; 83735; 85025; 86140; 87040; 87636; 87651; 96361; 96365; 96375; 99284; 99285-25; J0696; J1836; J2405; J3010; J7030; Q9967